=== PATIENT | male | born 1965 | race Caucasian/White ===

== ENCOUNTER 2016-07-16 16:49 | Emergency (ER) | payer SELFPAY | END 2016-07-16 22:40 | disposition home or self-care (01) | LOC: ER 16:49 | DX: K08.89 Other specified disorders of teeth and supporting structures (principal); F17.200 Nicotine dependence, unspecified, uncomplicated | CPT/HCPCS: 99282 ==

== ENCOUNTER 2016-07-27 19:30 | Emergency (ER) | payer SELFPAY ==
[2016-07-27 17:53] LABS: BASOPHILS 1.7 %; BASOPHILS ABSOLUTE 0.14 10/3/uL (0.0-0.16); EOSINOPHILS 1.4 %; EOSINOPHILS ABSOLUTE 0.12 10/3/uL (0.0-0.53); ER CBC TAT 0 Hrs 05 Mins; HEMATOCRIT 47.4 % (40.0-51.0); HEMOGLOBIN 16.8 g/dL (13.6-17.8); IMMATURE GRANULOCYTES 0.2 %; IMMATURE GRANULOCYTES ABSOLUTE 0.02 10/3/uL (0.0-0.11); LYMPHOCYTES 33.6 %; LYMPHOCYTES ABSOLUTE 2.84 10/3/uL (0.67-4.30); MEAN CORPUS HGB CONC 35.4 g/dL (32.0-36.0); MEAN CORPUSCULAR VOLUME 90.3 fL (80-100); MEAN PLATELET VOLUME 10.9 fL (9.2-13.0); MONOCYTES ABSOLUTE 0.42 10/3/uL (0.21-1.20); NEUTROPHILS 58.1 %; NEUTROPHILS ABSOLUTE 4.92 10/3/uL (2.02-8.40); RBC DISTRIBUTION WIDTH 13.7 % (12.0-16.0); RED CELL COUNT 5.25 10/6/uL (4.7-6.1); WHITE BLOOD CELLS 8.5 10/3/uL (4.5-10.5)
[2016-07-27 17:54] LABS: MANUAL DIFF NO %; PLATELET COUNT 144 10/3/uL (150-400)
[2016-07-27 18:03] LABS: PARTIAL THROMBO TIME 27.5 SEC (22.5-37.2); PROTIME (NOT ORD) 12.7 SEC (12.0-14.5)
[2016-07-27 18:09] LABS: BUN (BLOOD UREA NITROGEN) 4 MG/DL (6-23); CALCIUM, SERUM 8.8 MG/DL (8.5-10.4); CHEST PAIN PROFILE TAT 0 Hrs 21 Mins; CHLORIDE, SERUM 102 MMOL/L (96-112); CO2 (CARBON DIOXIDE) 27 MMOL/L (24-34); CREATININE 0.85 MG/DL (0.70-1.30); GFR AFRICAN AMERICAN 116 ML/MIN (>=60); GFR NON AFRICAN AMERICAN 100 ML/MIN (>=60); GLUCOSE, SERUM 121 MG/DL (60-99); POTASSIUM, SERUM 3.8 MMOL/L (3.5-5.3); SODIUM, SERUM 135 MMOL/L (135-148); TROPONIN I <0.02 NG/ML (<0.05)
[2016-07-27 20:12] LABS: ALCOHOL 294 MG/DL (0)
== END 2016-07-27 21:12 | disposition home or self-care (01) ==
LOC: ER 19:30
PROVIDERS: Emergency Medicine
DX: F10.20 Alcohol dependence, uncomplicated (principal); F17.200 Nicotine dependence, unspecified, uncomplicated; I10 Essential (primary) hypertension
CPT/HCPCS: 71020; 80048; 83735; 84484; 85025; 85610; 85730; 93005; 99285; G0480